=== PATIENT | female | born 2005 | race African-American/Black ===

== ENCOUNTER 2024-08-11 21:29 | Emergency (ER) | payer MEDICAID, OTHER ==
[~2024-08-11] VITALS: Ht 160 cm; Wt 72.6 kg
[~2024-08-11 21:29] MED LIST: ALBU8.5H8 IH; D ME PO; FLUT16SP NS
[2024-08-11] MEDS ORDERED: ONDANSETRON 4 MG/2 ML VIAL ONE (22:20)
[2024-08-11] MEDS ORDERED: MORPHINE SULFATE 2 MG/1 ML DISP.SYRIN ONE (22:20)
[2024-08-11 22:38] LABS: BASOPHILS % (AUTO) 0.7 % (0.0-2.0); EOSINOPHILS # (AUTO) 0.1 K/uL (0.0-0.7); EOSINOPHILS % (AUTO) 2.5 % (0.0-7.0); HEMATOCRIT 32.5 % (31.2-41.9); HEMOGLOBIN 9.9 g/dL (10.9-14.3); LYMPHOCYTES # (AUTO) 1.6 K/uL (0.8-4.8); LYMPHOCYTES % (AUTO) 28.6 % (20.5-74.5); MEAN CORPUSCULAR HEMOGLOBIN 21.9 uug (24.7-32.8); MEAN CORPUSCULAR HGB CONC 30 g/dL (32.3-35.6); MEAN CORPUSCULAR VOLUME 72.1 fL (75.5-95.3); MONOCYTES # (AUTO) 0.7 K/uL (0.1-1.30); NEUTROPHILS # (AUTO) 3.1 K/uL (1.8-8.9); NEUTROPHILS % (AUTO) 55.2 % (31.5-64.5); PLATELET COUNT (AUTO) 337 K/uL (179-408); RED CELL DISTRIBUTION WIDTH 21.4 % (12.3-17.7); WHITE BLOOD COUNT (AUTO) 5.6 K/uL (3.8-11.8)
[2024-08-11 22:41] LABS: DIFFERENTIAL COMMENT 1
[2024-08-11 22:49] LABS: ALBUMIN 3.4 g/dL (3.4-5.0); BILIRUBIN,DIRECT 0.2 mg/dL (0.0-0.2); BILIRUBIN,TOTAL 0.3 mg/dL (0.2-1.0); CALCIUM 8.6 mg/dL (8.5-10.1); CREATININE 0.9 mg/dL (0.6-1.3); POTASSIUM 3.6 mmol/L (3.5-5.1); TOTAL PROTEIN, SERUM 7.7 g/dL (6.4-8.2)
[2024-08-11] MEDS: IV NORMAL SALINE 1000 ML BAG IV ONE (22:54)
[2024-08-11] MEDS: ONDANSETRON 4 MG/2 ML VIAL IV ONE (22:55)
[2024-08-11] MEDS: MORPHINE SULFATE 2 MG/1 ML DISP.SYRIN IV ONE (22:55)
[2024-08-11 23:25] LABS: *BILIRUBIN,URIN 1+ (NEGATIVE); *BLOOD, URINE 3+ (NEGATIVE); *CLARITY,URINE SLIGHTLY CLOUDY (CLEAR); *COLOR,URINE RED (YELLOW); *KETONES,URINE 1+ (NEGATIVE); *PROTEIN,URINE 2+ (NEGATIVE); LEUKOCYTE ESTERASE ,URINE NEGATIVE (NEGATIVE); NITRITE, URINE NEGATIVE (NEGATIVE); UGLUCOSE NEGATIVE (NEGATIVE)
[2024-08-11 23:28] LABS: *URINE HCG, QUAL NEGATIVE (NEGATIVE)
[2024-08-12 00:37] LABS: BACTERIA,URINE NONE SEEN /HPF (NONE SEEN); MUCUS,URINE MODERATE /LPF (0-FEW); RBC,URINE TNTC /HPF (0-3); SQUAMOUS EPITHELIAL CELL,UR FEW /HPF (NONE SEEN); WBC,URINE NONE SEEN /HPF (0-3)
[2024-08-12 00:43] LABS: ANISOCYTOSIS 1+; BAND % (MANUAL) 2 % (0-10); EOSINOPHILS % (MANUAL) 1 % (0-8); LYMPHOCYTES % (MANUAL) 33 % (38-48); MONOCYTES % (MANUAL) 10 % (2-10); NEUTROPHILS % (MANUAL) 54 % (40-55); PLATELET ESTIMATE ADEQUATE
[2024-08-12 00:44] LABS: OVALOCYTES 2+
[2024-08-12] MEDS ORDERED: ONDA4TAB11 PO (02:47)
[2024-08-12 03:08] VITALS: BP 134/80; TEMP 97; O2SAT 100
[2024-08-14 16:06] LABS: *CHLAMYDIA NAA Negative (Negative); *GC NAA Negative (Negative); *TRIC.VAG. NAA Negative (Negative)
== END 2024-08-12 03:09 | disposition home or self-care (01) ==
LOC: ER 21:34
DX: R10.11 Right upper quadrant pain (principal); R11.2 Nausea with vomiting, unspecified; R19.7 Diarrhea, unspecified; R10.2 Pelvic and perineal pain; D64.9 Anemia, unspecified; J40 Bronchitis, not specified as acute or chronic; Z79.52 Long term (current) use of systemic steroids; Z79.899 Other long term (current) drug therapy; Z88.0 Allergy status to penicillin
CPT/HCPCS: 99285; 74176; 96374; 96361; 96375; 80076; 80048; 81001; 84703; 83690; 85025; 36415; 87491; 85007; J2405; J2270; J7040; 70030-TC; A4606; A4663